=== PATIENT | male | born 1980 ===

== ENCOUNTER 2020-06-20 00:48 | Emergency (ER) | payer BC ==
[2020-06-20] MEDS ORDERED: LORazepam 2 MG/ML SDV IM ONE (00:52)
[2020-06-20] MEDS ORDERED: OLANZapine 10 MG in Water For Injection, Sterile 2.1 ML IM ONE (00:52)
[2020-06-20] MEDS ORDERED: diphenhydrAMINE 50 MG/ML SDV IM ONE (00:53)
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
[2020-06-20] MEDS ORDERED: Lactated Ringers 1,000 ML IV ONE (01:00)
[2020-06-20] MEDS ORDERED: 50% Dextrose in Water 50 ML Syringe IV PRN (01:02)
[2020-06-20] MEDS ORDERED: Glucagon,Human Recombinant 1 MG Vial IM PRN (01:02)
[2020-06-20] MEDS ORDERED: Insulin Regular, Human 100 Units/ML 10 ML Vial IVPUSH ONE (01:02)
[2020-06-20 01:19] LABS: CARBON DIOXIDE,CO2 23.9 mmol/L (21.0-32.0); POTASSIUM,K 4.1 mmol/L (3.5-5.1)
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
== END 2020-06-20 02:16 ==
LOC: MW.ED 00:48
DX: F10.129 Alcohol abuse with intoxication, unspecified (principal); R73.9 Hyperglycemia, unspecified; R00.0 Tachycardia, unspecified; Y90.8 Blood alcohol level of 240 mg/100 ml or more
CPT/HCPCS: 36415; 70450; 70486; 72125; 80053; 80305; 80307; 82550; 82962; 83735; 84100; 85025; 85610; 85730; 93005; 99285; J7120; 93010; 99284; J1815-GY

== ENCOUNTER 2023-01-16 14:12 | Emergency (ER) | payer BC ==
[2023-01-16] MEDS ORDERED: Bacitracin Oint 1 GM U/D Packet TOP ONE ×2 (14:23→17:37)
[2023-01-16] MEDS ORDERED: Sodium Chloride 0.9% 10 ML Syringe FLUSH PRN (14:35)
[2023-01-16] MEDS ORDERED: Sodium Chloride 0.9% 2.5 ML Syringe FLUSH PRN (14:35)
[2023-01-16] MEDS ORDERED: Sodium Chloride 0.9% 1,000 ML IV ONE ×2 (14:36→16:01)
[2023-01-16 15:05] LABS: BASOPHILS PERCENT AUTO 0.5 % (0.0-1.5); EOSINOPHILS PERCENT AUTO 0.7 % (0.0-7.0); HEMATOCRIT 47.5 % (38.0-50.0); LYMPHOCYTES ABSOLUTE AUTO 1.4 K/uL (0.6-2.4); LYMPHOCYTES PERCENT AUTO 23.1 % (16.0-40.0); MEAN CORPUSCULAR HEMOGLOBIN 33.9 pg (27.0-32.0); MEAN CORPUSCULAR HGB CONC 35.8 g/dL (31.0-37.0); MEAN CORPUSCULAR VOLUME 94.6 fL (80.0-98.0); MONOCYTES ABSOLUTE AUTO 0.4 K/uL (0.0-0.8); MONOCYTES PERCENT AUTO 6.8 % (0.0-15.0); NEUTROPHILS ABSOLUTE AUTO 4.1 K/uL (1.4-5.7); NEUTROPHILS PERCENT AUTO 68.9 % (48.0-80.0); PLATELET COUNT,PLT 194 K/uL (150-400); RED BLOOD CELL COUNT 5.02 M/uL (4.50-5.90); WHITE BLOOD CELL COUNT,WBC 5.88 K/uL (4.0-11.0)
[2023-01-16 15:23] LABS: INR 0.99 (0.86-1.11)
[2023-01-16] MEDS ORDERED: Iopamidol 755 MG/ML 500 ML Multipack Bottle IVPUSH ONE (15:33)
[2023-01-16 15:54] LABS: ALBUMIN 3.8 g/dL (3.4-5.0); BILIRUBIN TOTAL 0.3 mg/dL (0.2-1.0); CALCIUM 9.2 mg/dL (8.5-10.1); CARBON DIOXIDE,CO2 26.2 mmol/L (21.0-32.0); CREATININE 1.1 mg/dL (0.8-1.3); EST CRCL DRUG DOSING (CG) 88.48 mL/min; POTASSIUM,K 4.1 mmol/L (3.5-5.1); PROTEIN TOTAL,TP 8.9 g/dL (6.4-8.2)
[2023-01-16 15:56] LABS: A/G RATIO 0.8 (0.9-1.6)
[2023-01-16] MEDS ORDERED: Tetracaine HCl/PF 0.5% 4 ML Bottle EYERT ONE (16:03)
[2023-01-16 16:28] LABS: BASE EXCESS VENOUS 2.4 (-2.0-3.0); BICARBONATE,VENOUS 29 mEq/L (23-28); PCO2 VENOUS 50 mmHG (41-51); PH,VENOUS 7.37 (7.31-7.41)
[2023-01-16 16:31] LABS: PO2 VENOUS < 30 mmHG
[2023-01-16 17:07] LABS: AMPHETAMINES SCREEN, URINE NEGATIVE (CUTOFF=500); BARBITURATE SCREEN,URINE NEGATIVE (CUTOFF=200); BENZODIAZEPINES SCREEN,URINE NEGATIVE (CUTOFF=150); BUPRENORPHINE SCREEN,URINE NEGATIVE (CUTOFF=10); METHADONE SCREEN, URINE NEGATIVE (CUTOFF=200); METHAMPHETAMINES SCREEN, URINE NEGATIVE (CUTOFF=500); OXYCODONE SCREEN,URINE NEGATIVE (CUT0FF=100); PCP SCREEN,URINE NEGATIVE (CUTOFF=25); PROPOXYPHENE SCREEN,URINE NEGATIVE (CUTOFF=300); THC SCREEN,URINE 20 NG/ML NEGATIVE (CUTOFF=50)
[2023-01-16] MEDS ORDERED: Diphtheria,Pertussis(Acell),Tetanus Vaccine 0.5 ML Syringe IM ONE (17:36)
== END 2023-01-16 18:13 ==
LOC: MW.ED 14:12
DX: S02.19XA Other fracture of base of skull, initial encounter for closed fracture (principal); S02.40CA Maxillary fracture, right side, initial encounter for closed fracture; S02.31XA Fracture of orbital floor, right side, initial encounter for closed fracture; S02.121A Fracture of orbital roof, right side, initial encounter for closed fracture; S06.6X0A Traumatic subarachnoid hemorrhage without loss of consciousness, initial encounter; R73.9 Hyperglycemia, unspecified; V86.95XA Unspecified occupant of 3- or 4- wheeled all-terrain vehicle (ATV) injured in nontraffic accident, initial encounter; Y93.I9 Activity, other involving external motion
CPT/HCPCS: 36415; 70450; 70486; 71045; 71260; 72125; 72170; 74177; 80053; 80305; 80307; 82009; 82550; 82803; 82947; 84484; 85025; 85610; 90471; 90715; 93005; 96360; 96361; 99285; J3490; J7030; Q9967